=== PATIENT | female | born 1960 | race Caucasian/White ===

== ENCOUNTER 2017-02-02 12:02 | Emergency (ER) | payer SELFPAY ==
[2017-02-02 12:42] LABS: % IMMATURE GRANULYOCYTES 0.1 % (0.0-1.1); ABSOLUTE IMMATURE GRANULOCYTES 0.01 10^3/uL (0.00-0.10); ADD DIFF? NO; ADD MORPH? NO; ADD SCAN? NO; ATYPICAL LYMPHOCYTE FLAG 0 (0-99); FRAGMENT RBC FLAG 0 (0-99); HEMATOCRIT 45.5 % (38.0-47.0); HEMOGLOBIN 16.2 g/dL (12.6-16.3); LEFT SHIFT FLG 0 (0-99); LIPEMIA HEMOLYSIS FLAG 90 (0-99); MEAN CELL HEMOGLOBIN 30.1 pg (27.9-34.1); MEAN CELL HEMOGLOBIN CONCENTR. 35.6 g/dL (32.4-36.7); MEAN CELL VOLUME 84.4 fL (81.5-99.8); MEAN PLATELET VOLUME 10.4 fL (8.7-11.7); PLATELET CLUMPS FLAG 10 (0-99); PLATELET COUNT 219 10^3/uL (150-400); RED BLOOD CELL COUNT 5.39 10^6/uL (4.18-5.33); RED CELL DISTRIBUTION WIDTH 11.8 % (11.5-15.2)
[2017-02-02] MEDS ORDERED: MECLIZINE HCL 25 MG TAB PO ONE (12:49)
--- NOTE | 2017-02-02 12:50 | CPEKG ---
Heart Rate: 69 RR Interval: 870 P-R Interval: 152 QRSD Interval: 102 QT Interval: 436 QTC Interval: 467 P [place]: 46 QRS [place]: -52 T Wave [place]: 2 EKG Severity - OTHERWISE NORMAL ECG - EKG Impression: SINUS RHYTHM EKG Impression: LEFT AXIS DEVIATION Electronically Signed By: Michael Felix 02-Feb-2017 13:58:25
[2017-02-02 12:54] LABS: ANION GAP 13 mEq/L (8-16); CALCIUM 9.5 mg/dL (8.5-10.4); CARBON DIOXIDE 23 mEq/l (22-31); CHLORIDE 108 mEq/L (97-110); CREATININE 0.6 mg/dL (0.6-1.0); GLOMERULAR FILTRATION RATE > 60; GLUCOSE 96 mg/dL (70-100); POTASSIUM 3.8 mEq/L (3.5-5.2); SODIUM 144 mEq/L (134-144)
--- NOTE | 2017-02-02 13:02 | EDPHY ---
H & P Stated Complaint: htn dizzy shaky and visual changes x 1 week Time Seen by Provider: 02/02/17 12:25 HPI/ROS: This patient complains of nausea in association with dizziness that she describes as both lightheadedness and a spinning sensation. She also states that she "feels like (her) body is shaking inside." Due to the symptoms that started Friday, 4 days prior to arrival her brought her to [facility] in [facility] where she was noted to have hypertension and encouraged to come here for further evaluation for her symptoms. On arrival here her automated blood pressure is 212/144, a manual check reveals 188/99 in the right arm. ROS: No fevers or other constitutional symptoms HEENT: No visual changes. Neuro: No headache. No numbness tingling or focal weakness. No confusion. Pulmonary: No shortness of breath Cardiovascular: No heart palpitations. No chest pain. No lower extremity swelling. GI: No abdominal pain : No flank pain. No hematuria. Integumentary: No skin rash pallor diaphoresis 10 point ROS is otherwise negative Source: Patient Exam Limitations: No limitations - Personal History Current Tetanus/Diphtheria Vaccine: Unsure Current Tetanus Diphtheria and Acellular Pertussis (TDAP): Unsure - Medical/Surgical History PMH: Otherwise healthy Family history: Sister with hypertension Other PMH: Tubal ligation - Family History Significant Family History: Hypertension (Sister) - Social History Smoking Status: Never smoked Alcohol Use: Rarely Drug Use: None Additional Social History: Minimal caffeine intake-typically water to cola (pepsi's) is a day - Physical Exam Exam: General Appearance: Alert, no distress. Eyes: Pupils equal and round no pallor or injection. ENT, Mouth: Mucous membranes moist. Respiratory: There are no retractions, lungs are clear to auscultation. Cardiovascular: Regular rate and rhythm. Gastrointestinal: Abdomen is soft and nontender, no masses, bowel sounds normal. Neurological: GCS 15. Cranial nerves 2-12 are grossly intact. She has normal cerebellar exam is judged by symmetric rapid hand movements bilaterally-finger to nose. No sensory motor deficits in her extremities. No lateral nystagmus. No significant vertigo with head movement. Skin: Warm and dry, no rashes. Musculoskeletal: Neck is supple nontender. Extremities are symmetrical, full range of motion. Psychiatric: Mildly anxious. Otherwise mood and affect are normal DIFFERENTIAL DIAGNOSIS: After history and physical exam differential diagnosis was considered for benign positional vertigo, hypertension, kidney disease, thyroid disease, anxiety, adrenal disease, pheochromocytoma Constitutional: Initial Vital Signs Heart Rate 67 02/02/17 12:05 Respiratory Rate 16 02/02/17 12:05 Blood Pressure 212/144 H 02/02/17 12:05 O2 Sat (%) 97 02/02/17 12:05 O2 Delivery Mode Room Air Allergies/Adverse Reactions: No Known Allergies Allergy (Verified 02/02/17 12:22) Home Medications: Medication Instructions Recorded Lisinopril [PRINIVIL] 10 mg PO DAILY #30 tablet 02/02/17 Meclizine HCl [Meclizine HCl 25 mg 25 mg PO TID PRN #20 tab 02/02/17 (RX,OTC)] Ondansetron Odt [Zofran Odt] 4 - 8 mg PO Q4PRN PRN #4 tab 02/02/17 Medical Decision Making - Diagnostics EKG Interpretation: 12 lead EKG performed shortly after arrival at 12:48 p.m. indication, hypertension dizziness, rule out dysrhythmia or coronary syndrome Sinus rhythm at 69 Intervals: Normal throughout [place]: P of 46, QRS of-52, T of 2 ST segments normal throughout Overall assessment sinus rhythm with left axis deviation please refer to trace master for complete read ED Course/Re-evaluation: Clonidine 0.1 mg p.o. Meclizine 25 mg p. o. Patient placed on a monitor. Stable on the monitor. Patient's hypertension responded to the clonidine with the diasstolic pressure to 90. Her vertigo improved with meclizine. Her nausea resolved. Discussion: Patient with hypertensive urgency without evidence of end-organ injury after workup here. I counseled regarding the importance of controlling her blood pressure in some detail. She also has vertigo that I think is attributable to benign positional vertigo. No clinical evidence to suggest a central vertigo. Workup ruled out any significant electrolyte abnormalities. I encouraged her to follow up with Dr. Enedelia Bowen the outpatient physician on- call to establish primary care physician relationship to monitor her blood pressure and will place her on lisinopril. I counseled the patient and her detail regarding her diagnosis and the treatment plan. While the temperature was not initially placed in the triage vitals she is afebrile. - Data Points Laboratory Results: Laboratory Results 02/02/17 12:30 02/02/17 12:30 02/02/17 02/02/17 02/02/17 13:10 12:30 12:30 WBC 8.18 10^3/uL 10^3/uL (3.80-9.50) RBC 5.39 10^6/uL H 10^6/uL (4.18-5.33) Hgb 16.2 g/dL g/dL (12.6-16.3) Hct 45.5 % % (38.0-47.0) MCV 84.4 fL fL (81.5-99.8) MCH 30.1 pg pg (27.9-34.1) MCHC 35.6 g/dL g/dL (32.4-36.7) RDW 11.8 % % (11.5-15.2) Plt Count 219 10^3/uL 10^3/uL (150-400) MPV 10.4 fL fL (8.7-11.7) Neut % (Auto) 62.8 % % (39.3-74.2) Lymph % (Auto) 29.1 % % (15.0-45.0) Pepin % (Auto) 6.7 % % (4.5-13.0) Eos % (Auto) 0.9 % % (0.6-7.6) Baso % (Auto) 0.4 % % (0.3-1.7) Nucleat RBC Rel Count 0.0 % % (0.0-0.2) Absolute Neuts (auto) 5.14 10^3/uL 10^3/uL (1.70-6.50) Absolute Lymphs (auto) 2.38 10^3/uL 10^3/uL (1.00-3.00) Absolute Monos (auto) 0.55 10^3/uL 10^3/uL (0.30-0.80) Absolute Eos (auto) 0.07 10^3/uL 10^3/uL (0.03-0.40) Absolute Basos (auto) 0.03 10^3/uL 10^3/uL (0.02-0.10) Absolute Nucleated RBC 0.00 10^3/uL 10^3/uL (0-0.01) Immature Gran % 0.1 % % (0.0-1.1) Immature Gran # 0.01 10^3/uL 10^3/uL (0.00-0.10) Sodium 144 mEq/L mEq/L (134-144) Potassium 3.8 mEq/L mEq/L (3.5-5.2) Chloride 108 mEq/L mEq/L (97-110) Carbon Dioxide 23 mEq/l mEq/l (22-31) Anion Gap 13 mEq/L mEq/L (8-16) BUN 6 mg/dL L mg/dL (7-23) Creatinine 0.6 mg/dL mg/dL (0.6-1.0) Estimated GFR > 60 Glucose 96 mg/dL mg/dL (70-100) Calcium 9.5 mg/dL mg/dL (8.5-10.4) TSH 2.660 uIU/mL uIU/mL (0.465-4.680) Urine Color YELLOW Urine Appearance CLEAR Urine pH 7.0 (5.0-7.5) Ur Specific [place] <= 1.005 (1.002-1.030) Urine Protein NEGATIVE (NEGATIVE) Urine Ketones NEGATIVE (NEGATIVE) Urine Blood NEGATIVE (NEGATIVE) Urine Nitrate NEGATIVE (NEGATIVE) Urine Bilirubin NEGATIVE (NEGATIVE) Urine Urobilinogen 0.2 EU EU (0.2-1.0) Ur Leukocyte Esterase NEGATIVE (NEGATIVE) Urine Glucose NEGATIVE (NEGATIVE) Medications Given: Discontinued Medications Clonidine (Catapres) 0.1 mg PO EDNOW ONE Stop: 02/02/17 12:50 Last Admin: 02/02/17 13:07 Dose: 0.1 mg Meclizine HCl (Meclizine Hcl) 25 mg PO EDNOW ONE Stop: 02/02/17 12:50 Last Admin: 02/02/17 13:07 Dose: 25 mg Departure - Departure Disposition: Home, Routine, Self-Care Clinical Impression: Hypertensive urgency Benign positional vertigo Qualifiers: Laterality: unspecified laterality Qualified Code(s): H81.10 - Benign paroxysmal vertigo, unspecified ear Vomiting Qualifiers: Vomiting type: unspecified Vomiting Intractability: non-intractable Nausea presence: with nausea Qualified Code(s): R11.2 - Nausea with vomiting, unspecified Condition: Good Instructions: Benign Paroxysmal Positional Vertigo (ED), Low Sodium Diet (ED), Hypertension (ED) Additional Instructions: Diagnoses: 1. Hypertension 2. Vomiting 3. Benign positional vertigo Plan: Meclizine for spinning sensation if needed Lisinopril for blood pressure control Zofran for nausea or vomiting if needed Usually the dizziness will resolve over 2-7 days. No work until your dizziness is under control. Follow up with Dr. Bowen to recheck her blood pressure, adjust BP med if needed and for any ongoing symptoms. It is likely that you may need a increase in the blood pressure medicine dose depending on the response to have to the initial dose. Return for any significant worsening despite treatment plan Referrals: Enedelia Bowen MD [[facility] Primary Care Provider] - As per Instructions Stand Alone Forms: Work Excuse Prescriptions: Lisinopril [PRINIVIL] 10 mg PO DAILY #30 tablet Meclizine HCl [Meclizine HCl 25 mg (RX,OTC)] 25 mg PO TID PRN #20 tab PRN Reason: vertigo Ondansetron Odt [Zofran Odt] 4 - 8 mg PO Q4PRN PRN #4 tab PRN Reason: Vomiting
[2017-02-02 13:10] LABS: COLOR YELLOW; LEUKOCYTE ESTERASE,URINE NEGATIVE (NEGATIVE); NITRITE,URINE NEGATIVE (NEGATIVE)
[2017-02-02 13:27] VITALS: RESP 18; TEMP 98
[2017-02-02 13:52] VITALS: BP 178/112; PULSE 85; O2SAT 97
== END 2017-02-02 13:51 | disposition home or self-care (01) ==
LOC: CED 12:02
DX: H81.10 Benign paroxysmal vertigo, unspecified ear (principal); R11.2 Nausea with vomiting, unspecified; I10 Essential (primary) hypertension
CPT/HCPCS: 80048-PO; 81003-PO; 84443-PO; 85025-PO

== ENCOUNTER 2017-07-09 08:41 | Emergency (ER) | payer OTHER ==
[2017-07-09 08:54] VITALS: RESP 16; TEMP 97.9; O2SAT 95
[2017-07-09] MEDS ORDERED: IBUPROFEN 600 MG TAB PO ONE (09:13)
[2017-07-09] MEDS ORDERED: ACETAMINOPHEN 500 MG TAB PO ONE (09:13)
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
[2017-07-09 09:48] VITALS: BP 156/117; PULSE 75
== END 2017-07-09 10:14 | disposition home or self-care (01) ==
LOC: CED 08:41
DX: S39.012A Strain of muscle, fascia and tendon of lower back, initial encounter (principal); S29.012A Strain of muscle and tendon of back wall of thorax, initial encounter; S16.1XXA Strain of muscle, fascia and tendon at neck level, initial encounter; R20.2 Paresthesia of skin; I10 Essential (primary) hypertension; V59.40XA Driver of pick-up truck or van injured in collision with unspecified motor vehicles in traffic accident, initial encounter; Y92.410 Unspecified street and highway as the place of occurrence of the external cause; Y99.8 Other external cause status; Y93.89 Activity, other specified
CPT/HCPCS: 72100-PO